=== PATIENT | male | born 1955 | race Caucasian/White ===

== ENCOUNTER 2016-09-29 11:31 | Emergency (ER) | payer OTHER ==
[~2016-09-29 11:31] MED LIST: /ACETCOD2T PO; BACT800T5 PO; MULTTAB4 PO
[2016-09-29] MEDS ORDERED: diphenhydrAMINE INJ 50MG/ML VIAL (J1200) As Ordered ONE (12:53)
[2016-09-29] MEDS ORDERED: METOCLOPRAMIDE INJ 10MG/2ML VIAL (J2765) As Ordered ONE (12:53)
[2016-09-29 13:05] LABS: BASO % 0.3 % (0.0-1.0); EOS # 0.1 K/mm3 (0.0-0.50); EOS % 0.8 % (0.0-3.0); LARGE UNSTAINED CELL # 0.1 K/mm3 (0.0-0.4); LARGE UNSTAINED CELL % 0.9 % (0.0-4.0); LYMPH # 1.1 K/mm3 (1.5-4.5); LYMPH % 10.2 % (24.0-44.0); MEAN CORPUSCULAR HEMOGLOBIN 32.1 pg (27.0-33.0); MEAN CORPUSCULAR HGB CONC 33.6 g/dl (32.0-36.5); MEAN CORPUSCULAR VOLUME 95.5 fl (80.0-96.0); MONO # 0.5 K/mm3 (0.0-0.8); MONO % 4.4 % (0.0-5.0); NEUTROPHILS # 8.5 K/mm3 (1.8-7.7); NEUTROPHILS % 83.3 % (36.0-66.0); PLATELET COUNT, AUTOMATED 258 k/mm3 (150-450); WHITE BLOOD COUNT 10.2 K/mm3 (4.0-10.0)
[2016-09-29] MEDS ORDERED: ISOVUE-370 76% 100ML VIAL (Q9967) As Ordered ONE (13:16)
[2016-09-29 13:23] LABS: ALBUMIN/GLOBULIN RATIO 1.14 (1.00-1.93); ALKALINE PHOSPHATASE 56 U/L (45-117); ALT/SGPT 26 U/L (12-78); AMYLASE 63 U/L (25-115); ANION GAP 6 MEQ/L (8-16); AST/SGOT 16 U/L (15-37); BILIRUBIN,DIRECT 0.1 MG/DL (0.0-0.2); BILIRUBIN,TOTAL 0.3 MG/DL (0.2-1.0); BLOOD UREA NITROGEN 13 MG/DL (7-18); CALCIUM LEVEL 8.9 MG/DL (8.5-10.1); CARBON DIOXIDE LEVEL 30 MEQ/L (21-32); CHLORIDE LEVEL 107 MEQ/L (98-107); CREATININE FOR GFR 1.02 MG/DL (0.70-1.30); GLOMERULAR FILTRATION RATE > 60.0 (>56); GLUCOSE, FASTING 127 MG/DL (70-105); POTASSIUM SERUM 4.1 MEQ/L (3.5-5.1); SODIUM LEVEL 143 MEQ/L (136-145); TOTAL PROTEIN 7.5 GM/DL (6.4-8.2)
--- NOTE | 2016-09-29 14:18 | REP ---
CT abdomen pelvis with IV contrast, without bowel contrast: Comparisons are 01/09/2013 and 11/19/2013. There is discoid atelectasis in the right lower lobe. The visualized lung conde are otherwise unremarkable. The hepatic parenchyma, gallbladder, pancreas and spleen are unremarkable. The adrenals are unremarkable. There is a 1 cm renal cortical cyst posteriorly in the right kidney, unchanged. There is a nonobstructive right renal calculus, unchanged. There is a nonobstructive left renal calculus, unchanged. There is no hydronephrosis. The abdominal aorta is unremarkable. There are diverticula in the ascending colon, transverse colon, descending colon, sigmoid colon as previously. There is no CT evidence of diverticulitis. There is wall thickening of the transverse colon, descending colon and sigmoid colon compatible with colitis in the appropriate clinical setting. There is wall thickening of the terminal ileum compatible with terminal ileitis in the appropriate clinical setting. The appendix has a normal appearance by CT. Pelvis: There is no ascites or adenopathy. There is wall thickening of the transverse colon, descending colon and sigmoid colon compatible with colitis in the appropriate clinical setting. There is no pericolonic inflammation or abscess. The bladder is unremarkable. There is no ascites. Impression: The appendix has a normal appearance by CT. There is diverticulosis universalis without CT evidence of diverticulitis. There is wall thickening of the transverse colon, descending colon and sigmoid colon compatible with colitis in the appropriate clinical setting. There is wall thickening of the terminal ileum compatible with terminal ileitis in the appropriate clinical setting. No adenopathy or ascites. Right renal cortical cyst. Bilateral nonobstructive renal calculi. Signed by Robbi Snyder MD 09/29/2016 02:10 P
[2016-09-29] MEDS ORDERED: KETOROLAC 30 MG/ML VIAL (J1885) As Ordered ONE (14:24)
--- NOTE | 2016-09-29 15:05 | EDDOCDS ---
Physician Documentation [facility] Name: Jensen Ndiaye Age: 60 yrs Sex: Male : 1955 Arrival Date: 09/29/2016 Time: 11:31 Bed I5 / M5 Private MD: Sixto Rice D Disposition: 09/29/16 14:49 Discharged to Home/Self Care. Impression: Infectious gastroenteritis and colitis, unspecified. - Condition is Stable. - Discharge Instructions: Viral Gastroenteritis, [id number]. - Prescriptions for Cipro 500 mg Oral Tablet - take 1 tablet by ORAL route every 12 hours; 14 tablet. Flagyl 500 mg Oral Tablet - take 1 tablet by ORAL route every 8 hours for 10 days; 30 tablet. Medrol (Thomas) 4 mg Oral Tablets, Dose Pack - take 1 Pack by ORAL route as directed - follow package instructions; 1 packet. - Medication Reconciliation, Local Pharmacy Hours form. - Follow up: Sixto Rice; When: Call to arrange an appointment; Reason: Further diagnostic work-up, Recheck today's complaints, Continuance of care. - Problem is new. - Symptoms are unchanged. Historical: - Allergies: Bees; - Home Meds: 1. 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 Patient uses alcohol but reports only rare drinking. Patient/guardian denies using street drugs, No barriers to communication noted, The patient speaks fluent Sinhala, Speaks appropriately for age. - Family history: Not pertinent. - : The pt / caregiver states he / she is not on anticoagulants. Home medication list is obtained from the patient. - Exposure Risk Screening:: None identified. Vital Signs: 09/29 11:33 BP 133 / 74; Pulse 69; Resp 17; Temp 98.9(T); Pulse Ox 99% on R/A; Weight 81.65 kg / lr2 180.01 lbs (R); Height 5 ft. 9 in. (175.26 cm) (R); 14:57 BP 136 / 74 LA Sitting (auto/reg); Pulse 78; Resp 16; Temp 97.0(O); Pulse Ox 98% ; Pain jrd 4/10; 11:33 Body Mass Index 26.58 (81.65 kg, 175.26 cm) lr2 MDM: 12:15 Financial registration complete. lg 12:16 [facility] Payment Agreement was scanned into [employer] and attached to record. lg 12:33 NS 0.9% 1000 ml IV at bolus once ordered. btw 12:33 IV Saline Lock ordered. btw 12:33 Undress patient appropriately for examination ordered. btw 12:33 Metoclopramide 20 mg IV at 80 mg/hr once over 15 mins ordered. btw 12:33 diphenhydrAMINE 50 mg IVP once ordered. btw 12:34 Amylase Ordered. EDMS 12:34 Basic Metabolic Profile Ordered. EDMS 12:34 CBC with Diff Ordered. EDMS 12:34 Lipase Ordered. EDMS 12:34 Liver Profile Ordered. EDMS 12:34 Urinalysis Ordered. EDMS 12:34 Urine Culture Ordered. EDMS 12:34 CT ABD & PELVIS: IV Contrast Only Ordered. EDMS 12:34 NOTHING BY MOUTH+DIET ordered. EDMS 13:35 Basic Metabolic Profile Reviewed. btw 13:35 CBC with Diff Reviewed. btw 13:35 Amylase Reviewed. btw 13:35 Lipase Reviewed. btw 13:35 Liver Profile Reviewed. btw 14:36 ketorolac 30 mg IVP once ordered. jo3 Administered Medications: 13:04 Drug: NS 0.9% 1000 ml Route: IV; Rate: bolus; Site: left antecubital; jmk 13:04 Drug: Metoclopramide 20 mg [metoclopramide 5 mg/mL injection solution] Route: IV; Rate: jmk 80 mg/hr; Infused Over: 15 mins; Site: left antecubital; 13:04 Not Given (pt reports that he is driving): diphenhydrAMINE 50 mg IVP once jmk 14:28 Drug: ketorolac 30 mg [ketorolac 30 mg/mL (1 mL) injection solution (1 mL)] Route: IVP; jo3 Site: left antecubital; 15:03 Follow up: Response: Pain is decreased jm Signatures: Dispatcher [employer] EDMS Eldon Wynn RN RN jmMicah Goncalves, Harlan Reg lg Yessy SimonRN RN jo3 Cassius Dumas PA PA btw Nayeli Durbin, RN RN ttb The chart was reviewed and I authenticate all verbal orders and agree with the evaluation and treatment provided.Attachments: 12:16 [facility] Payment Agreement lg MTDD
--- NOTE | 2016-09-29 15:05 | EDDOCDS ---
Nurse's Notes [facility] Name: Jensen Ndiaye Age: 60 yrs Sex: Male : 1955 Arrival Date: 09/29/2016 Time: 11:31 Bed I5 / M5 Private MD: Sixto Rice D Diagnosis: Infectious gastroenteritis and colitis, unspecified Presentation: 09/29 11:37 Presenting complaint: Patient states: "nausea, shakey, lower right quadrant abd pain". ttb Since this morning. Denies /GI changes. Adult Sepsis Screening: The patient does not have new or worsening altered mentation. Patient's respiratory rate is less than 22. Systolic blood pressure is greater than 100. Patient has a qSOFA score of 0- Negative Sepsis Screen. Suicide/Homicide risk assessment- the patient denies having any suicidal and/or homicidal ideations and does not present with any other emotional, behavioral or mental health complaints. Status: Patient is not a general service technician or dependent. Transition of care: patient was not received from another setting of care. 11:37 Acuity: MACY Level 3 ttb 11:37 Method Of Arrival: Walkin/Carried/Asstd ttb Triage Assessment: 11:39 General: Appears in no apparent distress, uncomfortable, well nourished, well groomed, ttb Behavior is appropriate for age. Pain: Location: RLQ. HIV screening NA for this visit Offered previously. Neurological: Level of Consciousness is awake, alert. Cardiovascular: Chest pain is denied. Respiratory: No deficits noted. Airway is patent. GI: Reports lower abdominal pain, nausea, vomiting. : Denies burning with urination, urinary frequency, urgency. Derm: Skin is normal. Injury Description: No known injury. Historical: - Allergies: Bees; - Home Meds: 1. 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 Patient uses alcohol but reports only rare drinking. Patient/guardian denies using street drugs, No barriers to communication noted, The patient speaks fluent Wolof, Speaks appropriately for age. - Family history: Not pertinent. - : The pt / caregiver states he / she is not on anticoagulants. Home medication list is obtained from the patient. - Exposure Risk Screening:: None identified. Screenin:02 Screening information is obtained from the patient. Fall risk: No risks identified. jo3 Assistance ADL's: requires no assistance with activities of daily living. Abuse/DV Screen: The patient / caregiver reports he/she is: not in a situation that causes fear, pain or injury. Nutritional screening: No deficits noted. Advance Directives: There is no active DNR order. home support is adequate. Assessment: 11:42 General: assess pt during triage- c/o RLQ pain that radiates to groin. vomited x3 srm today. . 13:02 Neurological: Level of Consciousness is awake, alert, Oriented to person, place, time. jo3 Cardiovascular: Rhythm is regular. Respiratory: Airway is patent Respiratory effort is even, unlabored. GI: No deficits noted. Abdomen is obese, Bowel sounds present X 4 quads. Abd is soft X 4 quads Abd is tender to palpation in right upper quadrant and right lower quadrant. Derm: Skin is pink, warm & dry. 13:44 General: Appears reports no change in nausea or pain. reinforced NPO.. jmk 14:37 Reassessment: Patient appears in no apparent distress at this time. Pt reports little jo3 change in pain and nausea. Toradol administered and this sign writer hand to monitor for effectiveness . 15:02 General: Appears without nausea and reports pain has lessened. IV bolus completed and jmk tolerated well. encouraged clear liquids x 24 hours. Vital Signs: 11:33 BP 133 / 74; Pulse 69; Resp 17; Temp 98.9(T); Pulse Ox 99% on R/A; Weight 81.65 kg (R); lr2 Height 5 ft. 9 in. (175.26 cm) (R); 14:57 BP 136 / 74 LA Sitting (auto/reg); Pulse 78; Resp 16; Temp 97.0(O); Pulse Ox 98% ; Pain jrd 11/27; 11:33 Body Mass Index 26.58 (81.65 kg, 175.26 cm) lr2 Vitals: 11:33 Log In Time: September 29, 2016 at 11:31. lr2 ED Course: 11:32 Patient visited by Whit Magana. lr2 11:32 Sixto Rice is Private Physician. lr2 11:32 Patient moved to Waiting lr2 11:33 Patient moved to Pre RCE lr2 11:38 Triage Initiated ttb 11:40 Patient visited by Nayeli Durbin RN. ttb 11:40 Patient moved to 6 ttb 11:41 Patient moved to Pre RCE ttb 12:02 Patient moved to Triage 1 js13 12:15 Cassius Dumas PA is PHCP. btw 12:15 Mirian Murillo MD is Attending Physician. btw 12:15 Patient visited by Cassius Dumas PA. btw 12:16 [facility] Payment Agreement was scanned into [employer] and attached to record. lg 12:33 Patient moved to I5 / M5 js13 13:02 The patient / caregiver is instructed regarding the plan of care and ED course. jo3 13:02 Inserted saline lock: 18 gauge in left antecubital area. Labs drawn. (by ED staff). jo3 Sent per order to lab. 13:06 Patient visited by Yessy Simon RN. jo3 14:38 Patient visited by Yessy Simon RN. jo3 14:49 Sixto Rice is Referral Physician. btw 14:57 Patient visited by Vinh Daniel PCA. jrd 15:01 CT ABD & PELVIS: IV Contrast Only Returned. EDMS 15:04 Discontinued lock intact, bleeding controlled, pressure dressing applied, No jmk redness/swelling at site. No procedures done that require assistance. Administered Medications: 13:04 Drug: NS 0.9% 1000 ml Route: IV; Rate: bolus; Site: left antecubital; jmk 13:04 Drug: Metoclopramide 20 mg [metoclopramide 5 mg/mL injection solution] Route: IV; Rate: jmk 80 mg/hr; Infused Over: 15 mins; Site: left antecubital; 13:04 Not Given (pt reports that he is driving): diphenhydrAMINE 50 mg IVP once jmk 14:28 Drug: ketorolac 30 mg [ketorolac 30 mg/mL (1 mL) injection solution (1 mL)] Route: IVP; jo3 Site: left antecubital; 15:03 Follow up: Response: Pain is decreased jmk Order Results: Lab Order: Amylase; SPEC'M 09/29/16 12:54 Test: AMYLASE; Value: 63; Range: 25-115; Units: U/L; Status: F Lab Order: Basic Metabolic Profile; SPEC'09/29/16 12:54 Test: GLUCOSE, FASTING; Value: 127; Range: 70-105; Abnormal: Above high normal; Units: MG/DL; Status: F Test: BLOOD UREA NITROGEN; Value: 13; Range: 7-18; Units: MG/DL; Status: F Test: CREATININE FOR GFR; Value: 1.02; Range: 0.70-1.30; Units: MG/DL; Status: F Test: GLOMERULAR FILTRATION RATE; Value: > 60.0; Range: >56; Status: F Test: SODIUM LEVEL; Value: 143; Range: 136-145; Units: MEQ/L; Status: F Test: POTASSIUM SERUM; Value: 4.1; Range: 3.5-5.1; Units: MEQ/L; Status: F Test: CHLORIDE LEVEL; Value: 107; Range: 98-107; Units: MEQ/L; Status: F Test: CARBON DIOXIDE LEVEL; Value: 30; Range: 21-32; Units: MEQ/L; Status: F Test: ANION GAP; Value: 6; Range: 8-16; Abnormal: Below low normal; Units: MEQ/L; Status: F Test: CALCIUM LEVEL; Value: 8.9; Range: 8.5-10.1; Units: MG/DL; Status: F Test Note: ; Units are mL/min/1.73 m2 Chronic Kidney Disease Staging per NKF: Stage I & II GFR >=60 Normal to Mildly Decreased Stage III GFR 30-59 Moderately Decreased Stage IV GFR 15-29 Severely Decreased Stage V GFR <15 Very Little GFR Left ESRD GFR <15 on SHEET TAILER Lab Order: CBC with Diff; SPEC'09/29/16 12:54 Test: WHITE BLOOD COUNT; Value: 10.2; Range: 4.0-10.0; Abnormal: Above high normal; Units: K/mm3; Status: F Test: RED BLOOD COUNT; Value: 4.78; Range: 4.30-6.10; Units: M/mm3; Status: F Test: HEMOGLOBIN; Value: 15.4; Range: 14.0-18.0; Units: g/dl; Status: F Test: HEMATOCRIT; Value: 45.7; Range: 42.0-52.0; Units: %; Status: F Test: MEAN CORPUSCULAR VOLUME; Value: 95.5; Range: 80.0-96.0; Units: fl; Status: F Test: MEAN CORPUSCULAR HEMOGLOBIN; Value: 32.1; Range: 27.0-33.0; Units: pg; Status: F Test: MEAN CORPUSCULAR HGB CONC; Value: 33.6; Range: 32.0-36.5; Units: g/dl; Status: F Test: RED CELL DISTRIBUTION WIDTH; Value: 12.0; Range: 11.5-14.5; Units: %; Status: F Test: PLATELET COUNT, AUTOMATED; Value: 258; Range: 150-450; Units: k/mm3; Status: F Test: NEUTROPHILS %; Value: 83.3; Range: 36.0-66.0; Abnormal: Above high normal; Units: %; Status: F Test: LYMPH %; Value: 10.2; Range: 24.0-44.0; Abnormal: Below low normal; Units: %; Status: F Test: MONO %; Value: 4.4; Range: 0.0-5.0; Units: %; Status: F Test: EOS %; Value: 0.8; Range: 0.0-3.0; Units: %; Status: F Test: BASO %; Value: 0.3; Range: 0.0-1.0; Units: %; Status: F Test: LARGE UNSTAINED CELL %; Value: 0.9; Range: 0.0-4.0; Units: %; Status: F Test: NEUTROPHILS #; Value: 8.5; Range: 1.8-7.7; Abnormal: Above high normal; Units: K/mm3; Status: F Test: LYMPH #; Value: 1.1; Range: 1.5-4.5; Abnormal: Below low normal; Units: K/mm3; Status: F Test: MONO #; Value: 0.5; Range: 0.0-0.8; Units: K/mm3; Status: F Test: EOS #; Value: 0.1; Range: 0.0-0.50; Units: K/mm3; Status: F Test: BASO #; Value: 0.0; Range: 0.0-0.2; Units: K/mm3; Status: F Test: LARGE UNSTAINED CELL #; Value: 0.1; Range: 0.0-0.4; Units: K/mm3; Status: F Lab Order: Lipase; SPEC'M 09/29/16 12:54 Test: LIPASE; Value: 125; Range: 73-393; Units: U/L; Status: F Lab Order: Liver Profile; SPEC'M 09/29/16 12:54 Test: AST/SGOT; Value: 16; Range: 15-37; Units: U/L; Status: F Test: ALT/SGPT; Value: 26; Range: 12-78; Units: U/L; Status: F Test: ALKALINE PHOSPHATASE; Value: 56; Range: 45-117; Units: U/L; Status: F Test: BILIRUBIN,TOTAL; Value: 0.3; Range: 0.2-1.0; Units: MG/DL; Status: F Test: BILIRUBIN,DIRECT; Value: 0.1; Range: 0.0-0.2; Units: MG/DL; Status: F Test: TOTAL PROTEIN; Value: 7.5; Range: 6.4-8.2; Units: GM/DL; Status: F Test: ALBUMIN; Value: 4.0; Range: 3.2-5.2; Units: GM/DL; Status: F Test: ALBUMIN/GLOBULIN RATIO; Value: 1.14; Range: 1.00-1.93; Status: F Radiology Order: CT ABD & PELVIS: IV Contrast Only Test: CT ABD & PELVIS: IV Contrast Only REASON FOR EXAMINATION: Appendicitis; CT abdomen pelvis with IV contrast, without bowel contrast:; ; Comparisons are 01/09/2013 and 11/19/2013.; ; There is discoid atelectasis in the right lower lobe. The visualized lung conde; are otherwise unremarkable.; ; The hepatic parenchyma, gallbladder, pancreas and spleen are unremarkable. The; adrenals are unremarkable.; ; There is a 1 cm renal cortical cyst posteriorly in the right kidney, unchanged.; There is a nonobstructive right renal calculus, unchanged. There is a; nonobstructive left renal calculus, unchanged. There is no hydronephrosis.; ; The abdominal aorta is unremarkable.; ; There are diverticula in the ascending colon, transverse colon, descending colon,; sigmoid colon as previously. There is no CT evidence of diverticulitis.; ; There is wall thickening of the transverse colon, descending colon and sigmoid; colon compatible with colitis in the appropriate clinical setting. There is wall; thickening of the terminal ileum compatible with terminal ileitis in the; appropriate clinical setting.; ; The appendix has a normal appearance by CT.; ; Pelvis:; ; There is no ascites or adenopathy.; ; There is wall thickening of the transverse colon, descending colon and sigmoid; colon compatible with colitis in the appropriate clinical setting. There is no; pericolonic inflammation or abscess.; ; The bladder is unremarkable. There is no ascites.; ; Impression:; ; The appendix has a normal appearance by CT.; ; There is diverticulosis universalis without CT evidence of diverticulitis.; ; There is wall thickening of the transverse colon, descending colon and sigmoid; colon compatible with colitis in the appropriate clinical setting. There is wall; thickening of the terminal ileum compatible with terminal ileitis in the; appropriate clinical setting.; ; No adenopathy or ascites.; ; Right renal cortical cyst. Bilateral nonobstructive renal calculi.; ; ; Signed by; Robbi Snyder MD 09/29/2016 02:10 P; Outcome: 14:49 Discharge ordered by Provider. btw 15:04 Discharge Assessment: Patient awake, alert and oriented x 3. No cognitive and/or jmk functional deficits noted. Patient verbalized understanding of disposition instructions. patient administered narcotics - no. The following High Risk Discharge criteria are identified: None. Discharged to home ambulatory. Condition: good. Discharge instructions given to patient, Instructed on discharge instructions, follow up and referral plans. medication usage, Demonstrated understanding of instructions, medications, Patient was not receptive of discharge instructions. Prescriptions given X 3. CT Study completed. Property :Personal belongings accompany Pt. 15:05 Patient left the ED. alex Signatures: Dispatcher [employer] EDMS Eldon Wynn RN RN jmk Michelson, Staci RN Micah Mcnair, Harlan Reg lg Yessy Simon RN RN [email or web address] Cassius Dumas, VANESSA PA btw Yessy Parks,CATRACHITO WINSTON js13 Nayeli Durbin RN RN ttb Donoghue, Joseph, SPRAY II PAINTER SPRAY II PAINTER jrd Whit Magana lr2 MTDD
[2016-09-29] MEDS ORDERED: METAL LOCK LOOP XX ONE (16:52)
--- NOTE | 2016-10-01 16:06 | EDDOCDS ---
Physician Documentation [facility] Name: Jensen Ndiaye Age: 60 yrs Sex: Male : 1955 Arrival Date: 09/29/2016 Time: 11:31 Bed I5 / M5 Private MD: Sixto Rice D Disposition: 09/29/16 14:49 Discharged to Home/Self Care. Impression: Infectious gastroenteritis and colitis, unspecified. - Condition is Stable. - Discharge Instructions: Viral Gastroenteritis, [id number]. - Prescriptions for Cipro 500 mg Oral Tablet - take 1 tablet by ORAL route every 12 hours; 14 tablet. Flagyl 500 mg Oral Tablet - take 1 tablet by ORAL route every 8 hours for 10 days; 30 tablet. Medrol (Thomas) 4 mg Oral Tablets, Dose Pack - take 1 Pack by ORAL route as directed - follow package instructions; 1 packet. - Medication Reconciliation, Local Pharmacy Hours form. - Follow up: Sixto Rice; When: Call to arrange an appointment; Reason: Further diagnostic work-up, Recheck today's complaints, Continuance of care. - Problem is new. - Symptoms are unchanged. Historical: - Allergies: Bees; - Home Meds: 1. 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 Patient uses alcohol but reports only rare drinking. Patient/guardian denies using street drugs, No barriers to communication noted, The patient speaks fluent Welsh, Speaks appropriately for age. - Family history: Not pertinent. - : The pt / caregiver states he / she is not on anticoagulants. Home medication list is obtained from the patient. - Exposure Risk Screening:: None identified. Vital Signs: 09/29 11:33 BP 133 / 74; Pulse 69; Resp 17; Temp 98.9(T); Pulse Ox 99% on R/A; Weight 81.65 kg / lr2 180.01 lbs (R); Height 5 ft. 9 in. (175.26 cm) (R); 14:57 BP 136 / 74 LA Sitting (auto/reg); Pulse 78; Resp 16; Temp 97.0(O); Pulse Ox 98% ; Pain jrd 4/10; 11:33 Body Mass Index 26.58 (81.65 kg, 175.26 cm) lr2 MDM: 12:15 Financial registration complete. lg 12:16 [facility] Payment Agreement was scanned into [employer] and attached to record. lg 12:33 NS 0.9% 1000 ml IV at bolus once ordered. btw 12:33 IV Saline Lock ordered. btw 12:33 Undress patient appropriately for examination ordered. btw 12:33 Metoclopramide 20 mg IV at 80 mg/hr once over 15 mins ordered. btw 12:33 diphenhydrAMINE 50 mg IVP once ordered. btw 12:34 Amylase Ordered. EDMS 12:34 Basic Metabolic Profile Ordered. EDMS 12:34 CBC with Diff Ordered. EDMS 12:34 Lipase Ordered. EDMS 12:34 Liver Profile Ordered. EDMS 12:34 Urinalysis Ordered. EDMS 12:34 Urine Culture Ordered. EDMS 12:34 CT ABD & PELVIS: IV Contrast Only Ordered. EDMS 12:34 NOTHING BY MOUTH+DIET ordered. EDMS 13:35 Basic Metabolic Profile Reviewed. btw 13:35 CBC with Diff Reviewed. btw 13:35 Amylase Reviewed. btw 13:35 Lipase Reviewed. btw 13:35 Liver Profile Reviewed. btw 14:36 ketorolac 30 mg IVP once ordered. jo3 09/30 11:50 T-Sheet-- Draft Copy was scanned into [employer] and attached to record. gb Administered Medications: 09/29 13:04 Drug: NS 0.9% 1000 ml Route: IV; Rate: bolus; Site: left antecubital; jmk 13:04 Drug: Metoclopramide 20 mg [metoclopramide 5 mg/mL injection solution] Route: IV; Rate: jmk 80 mg/hr; Infused Over: 15 mins; Site: left antecubital; 13:04 Not Given (pt reports that he is driving): diphenhydrAMINE 50 mg IVP once cresencio 14:28 Drug: ketorolac 30 mg [ketorolac 30 mg/mL (1 mL) injection solution (1 mL)] Route: IVP; jo3 Site: left antecubital; 15:03 Follow up: Response: Pain is decreased alex Signatures: Dispatcher [employer] EDMS Eldon Wynn RN RN Beckie Russo, Reg Reg gb Micah Gregorio, Reg Reg lg Yessy Simon RN RN jo3 Casisus Dumas PA PA btw Nayeli Durbin RN RN ttb The chart was reviewed and I authenticate all verbal orders and agree with the evaluation and treatment provided.Attachments: 12:16 [facility] Payment Agreement lg 09/30 11:50 T-Sheet-- Draft Copy gb Chart Complete MTDD
--- NOTE | 2016-10-01 16:06 | EDDOCDS ---
Nurse's Notes [facility] Name: Jensen Ndiaye Age: 60 yrs Sex: Male : 1955 Arrival Date: 09/29/2016 Time: 11:31 Bed I5 / M5 Private MD: Sixto Rice D Diagnosis: Infectious gastroenteritis and colitis, unspecified Presentation: 09/29 11:37 Presenting complaint: Patient states: "nausea, shakey, lower right quadrant abd pain". ttb Since this morning. Denies /GI changes. Adult Sepsis Screening: The patient does not have new or worsening altered mentation. Patient's respiratory rate is less than 22. Systolic blood pressure is greater than 100. Patient has a qSOFA score of 0- Negative Sepsis Screen. Suicide/Homicide risk assessment- the patient denies having any suicidal and/or homicidal ideations and does not present with any other emotional, behavioral or mental health complaints. Status: Patient is not a direct customer service representative or dependent. Transition of care: patient was not received from another setting of care. 11:37 Acuity: MACY Level 3 ttb 11:37 Method Of Arrival: Walkin/Carried/Asstd ttb Triage Assessment: 11:39 General: Appears in no apparent distress, uncomfortable, well nourished, well groomed, ttb Behavior is appropriate for age. Pain: Location: RLQ. HIV screening NA for this visit Offered previously. Neurological: Level of Consciousness is awake, alert. Cardiovascular: Chest pain is denied. Respiratory: No deficits noted. Airway is patent. GI: Reports lower abdominal pain, nausea, vomiting. : Denies burning with urination, urinary frequency, urgency. Derm: Skin is normal. Injury Description: No known injury. Historical: - Allergies: Bees; - Home Meds: 1. 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 Patient uses alcohol but reports only rare drinking. Patient/guardian denies using street drugs, No barriers to communication noted, The patient speaks fluent Mongolian, Speaks appropriately for age. - Family history: Not pertinent. - : The pt / caregiver states he / she is not on anticoagulants. Home medication list is obtained from the patient. - Exposure Risk Screening:: None identified. Screenin:02 Screening information is obtained from the patient. Fall risk: No risks identified. jo3 Assistance ADL's: requires no assistance with activities of daily living. Abuse/DV Screen: The patient / caregiver reports he/she is: not in a situation that causes fear, pain or injury. Nutritional screening: No deficits noted. Advance Directives: There is no active DNR order. home support is adequate. Assessment: 11:42 General: assess pt during triage- c/o RLQ pain that radiates to groin. vomited x3 srm today. . 13:02 Neurological: Level of Consciousness is awake, alert, Oriented to person, place, time. jo3 Cardiovascular: Rhythm is regular. Respiratory: Airway is patent Respiratory effort is even, unlabored. GI: No deficits noted. Abdomen is obese, Bowel sounds present X 4 quads. Abd is soft X 4 quads Abd is tender to palpation in right upper quadrant and right lower quadrant. Derm: Skin is pink, warm & dry. 13:44 General: Appears reports no change in nausea or pain. reinforced NPO.. jmk 14:37 Reassessment: Patient appears in no apparent distress at this time. Pt reports little jo3 change in pain and nausea. Toradol administered and this short story writer to monitor for effectiveness . 15:02 General: Appears without nausea and reports pain has lessened. IV bolus completed and jmk tolerated well. encouraged clear liquids x 24 hours. Vital Signs: 11:33 BP 133 / 74; Pulse 69; Resp 17; Temp 98.9(T); Pulse Ox 99% on R/A; Weight 81.65 kg (R); lr2 Height 5 ft. 9 in. (175.26 cm) (R); 14:57 BP 136 / 74 LA Sitting (auto/reg); Pulse 78; Resp 16; Temp 97.0(O); Pulse Ox 98% ; Pain jrd 11/27; 11:33 Body Mass Index 26.58 (81.65 kg, 175.26 cm) lr2 Vitals: 11:33 Log In Time: September 29, 2016 at 11:31. lr2 ED Course: 11:32 Patient visited by Whit Magana. lr2 11:32 Sixto Rice is Private Physician. lr2 11:32 Patient moved to Waiting lr2 11:33 Patient moved to Pre RCE lr2 11:38 Triage Initiated ttb 11:40 Patient visited by Nayeli Durbin RN. ttb 11:40 Patient moved to 6 ttb 11:41 Patient moved to Pre RCE ttb 12:02 Patient moved to Triage 1 js13 12:15 Cassius Dumas PA is PHCP. btw 12:15 Mirian Murillo MD is Attending Physician. btw 12:15 Patient visited by Cassius Dumas PA. btw 12:16 [facility] Payment Agreement was scanned into TagArray and attached to record. lg 12:33 Patient moved to I5 / M5 js13 13:02 The patient / caregiver is instructed regarding the plan of care and ED course. jo3 13:02 Inserted saline lock: 18 gauge in left antecubital area. Labs drawn. (by ED staff). jo3 Sent per order to lab. 13:06 Patient visited by Yessy Simon RN. jo3 14:38 Patient visited by Yessy Simon RN. jo3 14:49 Sixto Rice is Referral Physician. btw 14:57 Patient visited by Vinh Daniel PCA. jrd 15:01 CT ABD & PELVIS: IV Contrast Only Returned. EDMS 15:04 Discontinued lock intact, bleeding controlled, pressure dressing applied, No jmk redness/swelling at site. No procedures done that require assistance. 09/30 11:50 T-Sheet-- Draft Copy was scanned into TagArray and attached to record. gb Administered Medications: 09/29 13:04 Drug: NS 0.9% 1000 ml Route: IV; Rate: bolus; Site: left antecubital; jmk 13:04 Drug: Metoclopramide 20 mg [metoclopramide 5 mg/mL injection solution] Route: IV; Rate: jmk 80 mg/hr; Infused Over: 15 mins; Site: left antecubital; 13:04 Not Given (pt reports that he is driving): diphenhydrAMINE 50 mg IVP once jmk 14:28 Drug: ketorolac 30 mg [ketorolac 30 mg/mL (1 mL) injection solution (1 mL)] Route: IVP; jo3 Site: left antecubital; 15:03 Follow up: Response: Pain is decreased jmk Order Results: Lab Order: Amylase; SPEC09/29/16 12:54 Test: AMYLASE; Value: 63; Range: 25-115; Units: U/L; Status: F Lab Order: Basic Metabolic Profile; 09/29/16 12:54 Test: GLUCOSE, FASTING; Value: 127; Range: 70-105; Abnormal: Above high normal; Units: MG/DL; Status: F Test: BLOOD UREA NITROGEN; Value: 13; Range: 7-18; Units: MG/DL; Status: F Test: CREATININE FOR GFR; Value: 1.02; Range: 0.70-1.30; Units: MG/DL; Status: F Test: GLOMERULAR FILTRATION RATE; Value: > 60.0; Range: >56; Status: F Test: SODIUM LEVEL; Value: 143; Range: 136-145; Units: MEQ/L; Status: F Test: POTASSIUM SERUM; Value: 4.1; Range: 3.5-5.1; Units: MEQ/L; Status: F Test: CHLORIDE LEVEL; Value: 107; Range: 98-107; Units: MEQ/L; Status: F Test: CARBON DIOXIDE LEVEL; Value: 30; Range: 21-32; Units: MEQ/L; Status: F Test: ANION GAP; Value: 6; Range: 8-16; Abnormal: Below low normal; Units: MEQ/L; Status: F Test: CALCIUM LEVEL; Value: 8.9; Range: 8.5-10.1; Units: MG/DL; Status: F Test Note: ; Units are mL/min/1.73 m2 Chronic Kidney Disease Staging per NKF: Stage I & II GFR >=60 Normal to Mildly Decreased Stage III GFR 30-59 Moderately Decreased Stage IV GFR 15-29 Severely Decreased Stage V GFR <15 Very Little GFR Left ESRD GFR <15 on LOCK SETTER Lab Order: CBC with Diff; 09/29/16 12:54 Test: WHITE BLOOD COUNT; Value: 10.2; Range: 4.0-10.0; Abnormal: Above high normal; Units: K/mm3; Status: F Test: RED BLOOD COUNT; Value: 4.78; Range: 4.30-6.10; Units: M/mm3; Status: F Test: HEMOGLOBIN; Value: 15.4; Range: 14.0-18.0; Units: g/dl; Status: F Test: HEMATOCRIT; Value: 45.7; Range: 42.0-52.0; Units: %; Status: F Test: MEAN CORPUSCULAR VOLUME; Value: 95.5; Range: 80.0-96.0; Units: fl; Status: F Test: MEAN CORPUSCULAR HEMOGLOBIN; Value: 32.1; Range: 27.0-33.0; Units: pg; Status: F Test: MEAN CORPUSCULAR HGB CONC; Value: 33.6; Range: 32.0-36.5; Units: g/dl; Status: F Test: RED CELL DISTRIBUTION WIDTH; Value: 12.0; Range: 11.5-14.5; Units: %; Status: F Test: PLATELET COUNT, AUTOMATED; Value: 258; Range: 150-450; Units: k/mm3; Status: F Test: NEUTROPHILS %; Value: 83.3; Range: 36.0-66.0; Abnormal: Above high normal; Units: %; Status: F Test: LYMPH %; Value: 10.2; Range: 24.0-44.0; Abnormal: Below low normal; Units: %; Status: F Test: MONO %; Value: 4.4; Range: 0.0-5.0; Units: %; Status: F Test: EOS %; Value: 0.8; Range: 0.0-3.0; Units: %; Status: F Test: BASO %; Value: 0.3; Range: 0.0-1.0; Units: %; Status: F Test: LARGE UNSTAINED CELL %; Value: 0.9; Range: 0.0-4.0; Units: %; Status: F Test: NEUTROPHILS #; Value: 8.5; Range: 1.8-7.7; Abnormal: Above high normal; Units: K/mm3; Status: F Test: LYMPH #; Value: 1.1; Range: 1.5-4.5; Abnormal: Below low normal; Units: K/mm3; Status: F Test: MONO #; Value: 0.5; Range: 0.0-0.8; Units: K/mm3; Status: F Test: EOS #; Value: 0.1; Range: 0.0-0.50; Units: K/mm3; Status: F Test: BASO #; Value: 0.0; Range: 0.0-0.2; Units: K/mm3; Status: F Test: LARGE UNSTAINED CELL #; Value: 0.1; Range: 0.0-0.4; Units: K/mm3; Status: F Lab Order: Lipase; SPEC'M 09/29/16 12:54 Test: LIPASE; Value: 125; Range: 73-393; Units: U/L; Status: F Lab Order: Liver Profile; SPEC'M 09/29/16 12:54 Test: AST/SGOT; Value: 16; Range: 15-37; Units: U/L; Status: F Test: ALT/SGPT; Value: 26; Range: 12-78; Units: U/L; Status: F Test: ALKALINE PHOSPHATASE; Value: 56; Range: 45-117; Units: U/L; Status: F Test: BILIRUBIN,TOTAL; Value: 0.3; Range: 0.2-1.0; Units: MG/DL; Status: F Test: BILIRUBIN,DIRECT; Value: 0.1; Range: 0.0-0.2; Units: MG/DL; Status: F Test: TOTAL PROTEIN; Value: 7.5; Range: 6.4-8.2; Units: GM/DL; Status: F Test: ALBUMIN; Value: 4.0; Range: 3.2-5.2; Units: GM/DL; Status: F Test: ALBUMIN/GLOBULIN RATIO; Value: 1.14; Range: 1.00-1.93; Status: F Radiology Order: CT ABD & PELVIS: IV Contrast Only Test: CT ABD & PELVIS: IV Contrast Only REASON FOR EXAMINATION: Appendicitis; CT abdomen pelvis with IV contrast, without bowel contrast:; ; Comparisons are 01/09/2013 and 11/19/2013.; ; There is discoid atelectasis in the right lower lobe. The visualized lung conde; are otherwise unremarkable.; ; The hepatic parenchyma, gallbladder, pancreas and spleen are unremarkable. The; adrenals are unremarkable.; ; There is a 1 cm renal cortical cyst posteriorly in the right kidney, unchanged.; There is a nonobstructive right renal calculus, unchanged. There is a; nonobstructive left renal calculus, unchanged. There is no hydronephrosis.; ; The abdominal aorta is unremarkable.; ; There are diverticula in the ascending colon, transverse colon, descending colon,; sigmoid colon as previously. There is no CT evidence of diverticulitis.; ; There is wall thickening of the transverse colon, descending colon and sigmoid; colon compatible with colitis in the appropriate clinical setting. There is wall; thickening of the terminal ileum compatible with terminal ileitis in the; appropriate clinical setting.; ; The appendix has a normal appearance by CT.; ; Pelvis:; ; There is no ascites or adenopathy.; ; There is wall thickening of the transverse colon, descending colon and sigmoid; colon compatible with colitis in the appropriate clinical setting. There is no; pericolonic inflammation or abscess.; ; The bladder is unremarkable. There is no ascites.; ; Impression:; ; The appendix has a normal appearance by CT.; ; There is diverticulosis universalis without CT evidence of diverticulitis.; ; There is wall thickening of the transverse colon, descending colon and sigmoid; colon compatible with colitis in the appropriate clinical setting. There is wall; thickening of the terminal ileum compatible with terminal ileitis in the; appropriate clinical setting.; ; No adenopathy or ascites.; ; Right renal cortical cyst. Bilateral nonobstructive renal calculi.; ; ; Signed by; Robbi Snyder MD 09/29/2016 02:10 P; Outcome: 14:49 Discharge ordered by Provider. btw 15:04 Discharge Assessment: Patient awake, alert and oriented x 3. No cognitive and/or jmk functional deficits noted. Patient verbalized understanding of disposition instructions. patient administered narcotics - no. The following High Risk Discharge criteria are identified: None. Discharged to home ambulatory. Condition: good. Discharge instructions given to patient, Instructed on discharge instructions, follow up and referral plans. medication usage, Demonstrated understanding of instructions, medications, Patient was not receptive of discharge instructions. Prescriptions given X 3. CT Study completed. Property :Personal belongings accompany Pt. 15:05 Patient left the ED. alex Signatures: Dispatcher [employer] EDMS Eldon Wynn RN RN jmk Michelson, Staci, RN RN [facility] Beckie Lanier, Reg Reg gb Micah Gregorio, Reg Reg lg Yessy Simon RN RN jo3 Wolfenden, Cassius, PA PA btw Yessy Parks,RN RN js13 Nayeli Durbin, RN RN griffinb Vinh Daniel, SILVIA TIPPLE SUPERVISOR jrd Whit Magana2 Chart Complete MTDD
--- NOTE | 2016-10-01 16:06 | EDDOCDS ---
Physician Documentation [facility] Name: Jensen Ndiaye Age: 60 yrs Sex: Male : 1955 Arrival Date: 09/29/2016 Time: 11:31 Bed I5 / M5 Private MD: Sixto Rice D Disposition: 09/29/16 14:49 Discharged to Home/Self Care. Impression: Infectious gastroenteritis and colitis, unspecified. - Condition is Stable. - Discharge Instructions: Viral Gastroenteritis, [id number]. - Prescriptions for Cipro 500 mg Oral Tablet - take 1 tablet by ORAL route every 12 hours; 14 tablet. Flagyl 500 mg Oral Tablet - take 1 tablet by ORAL route every 8 hours for 10 days; 30 tablet. Medrol (Thomas) 4 mg Oral Tablets, Dose Pack - take 1 Pack by ORAL route as directed - follow package instructions; 1 packet. - Medication Reconciliation, Local Pharmacy Hours form. - Follow up: Sixto Rice; When: Call to arrange an appointment; Reason: Further diagnostic work-up, Recheck today's complaints, Continuance of care. - Problem is new. - Symptoms are unchanged. Historical: - Allergies: Bees; - Home Meds: 1. 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 Patient uses alcohol but reports only rare drinking. Patient/guardian denies using street drugs, No barriers to communication noted, The patient speaks fluent Georgian, Speaks appropriately for age. - Family history: Not pertinent. - : The pt / caregiver states he / she is not on anticoagulants. Home medication list is obtained from the patient. - Exposure Risk Screening:: None identified. Vital Signs: 09/29 11:33 BP 133 / 74; Pulse 69; Resp 17; Temp 98.9(T); Pulse Ox 99% on R/A; Weight 81.65 kg / lr2 180.01 lbs (R); Height 5 ft. 9 in. (175.26 cm) (R); 14:57 BP 136 / 74 LA Sitting (auto/reg); Pulse 78; Resp 16; Temp 97.0(O); Pulse Ox 98% ; Pain jrd 4/10; 11:33 Body Mass Index 26.58 (81.65 kg, 175.26 cm) lr2 MDM: 12:15 Financial registration complete. lg 12:16 [place] [place] was scanned into Styl[employer] and attached to record. lg 12:33 NS 0.9% 1000 ml IV at bolus once ordered. btw 12:33 IV Saline Lock ordered. btw 12:33 Undress patient appropriately for examination ordered. btw 12:33 Metoclopramide 20 mg IV at 80 mg/hr once over 15 mins ordered. btw 12:33 diphenhydrAMINE 50 mg IVP once ordered. btw 12:34 Amylase Ordered. EDMS 12:34 Basic Metabolic Profile Ordered. EDMS 12:34 CBC with Diff Ordered. EDMS 12:34 Lipase Ordered. EDMS 12:34 Liver Profile Ordered. EDMS 12:34 Urinalysis Ordered. EDMS 12:34 Urine Culture Ordered. EDMS 12:34 CT ABD & PELVIS: IV Contrast Only Ordered. EDMS 12:34 NOTHING BY MOUTH+DIET ordered. EDMS 13:35 Basic Metabolic Profile Reviewed. btw 13:35 CBC with Diff Reviewed. btw 13:35 Amylase Reviewed. btw 13:35 Lipase Reviewed. btw 13:35 Liver Profile Reviewed. btw 14:36 ketorolac 30 mg IVP once ordered. jo3 09/30 11:50 T-Sheet-- Draft Copy was scanned into [employer] and attached to record. gb Administered Medications: 09/29 13:04 Drug: NS 0.9% 1000 ml Route: IV; Rate: bolus; Site: left antecubital; jmk 13:04 Drug: Metoclopramide 20 mg [metoclopramide 5 mg/mL injection solution] Route: IV; Rate: jmk 80 mg/hr; Infused Over: 15 mins; Site: left antecubital; 13:04 Not Given (pt reports that he is driving): diphenhydrAMINE 50 mg IVP once cresencio 14:28 Drug: ketorolac 30 mg [ketorolac 30 mg/mL (1 mL) injection solution (1 mL)] Route: IVP; jo3 Site: left antecubital; 15:03 Follow up: Response: Pain is decreased alex Signatures: Dispatcher [employer] EDMS Eldon Wynn RN RN Beckie Russo, Reg Reg gb Micah Gregorio, Reg Reg lg Yessy Simon RN RN jo3 Cassius Dumas PA PA btw Nayeli Durbin RN RN ttb The chart was reviewed and I authenticate all verbal orders and agree with the evaluation and treatment provided.Attachments: 12:16 [facility] Payment Agreement lg 09/30 11:50 T-Sheet-- Draft Copy gb Chart Complete MTDD
== END 2016-09-29 15:05 | disposition home or self-care (01) ==
LOC: M ED 11:31
DX: K52.9 Noninfective gastroenteritis and colitis, unspecified (principal); Z72.0 Tobacco use; Z91.030 Bee allergy status
CPT/HCPCS: 36415; 74177; 80048; 80076; 82150; 83690; 85025; 96374; 96375; 99284; J1885; J2765; Q9967

== ENCOUNTER → 2017-02-26 | Outpatient (REF) | payer OTHER ==
[2017-02-26 11:57] LABS: BASO % 0.7 % (0.0-1.0); EOS # 0.2 K/mm3 (0.0-0.50); EOS % 5.2 % (0.0-3.0); LARGE UNSTAINED CELL # 0.2 K/mm3 (0.0-0.4); LARGE UNSTAINED CELL % 3.2 % (0.0-4.0); LYMPH # 1.8 K/mm3 (1.5-4.5); LYMPH % 33.8 % (24.0-44.0); MEAN CORPUSCULAR HEMOGLOBIN 32.5 pg (27.0-33.0); MEAN CORPUSCULAR HGB CONC 33.9 g/dl (32.0-36.5); MEAN CORPUSCULAR VOLUME 95.9 fl (80.0-96.0); MONO # 0.4 K/mm3 (0.0-0.8); NEUTROPHILS # 2.3 K/mm3 (1.8-7.7); NEUTROPHILS % 49.1 % (36.0-66.0); PLATELET COUNT, AUTOMATED 268 k/mm3 (150-450); WHITE BLOOD COUNT 4.8 K/mm3 (4.0-10.0)
[2017-02-26 13:48] LABS: ALBUMIN 3.7 GM/DL (3.2-5.2); ALBUMIN/GLOBULIN RATIO 1.23 (1.00-1.93); ALKALINE PHOSPHATASE 55 U/L (45-117); ALT/SGPT 25 U/L (12-78); ANION GAP 3 MEQ/L (8-16); AST/SGOT 11 U/L (15-37); BILIRUBIN,TOTAL 0.5 MG/DL (0.2-1.0); BLOOD UREA NITROGEN 15 MG/DL (7-18); CARBON DIOXIDE LEVEL 32 MEQ/L (21-32); CHLORIDE LEVEL 107 MEQ/L (98-107); CHOLESTEROL LEVEL 181 MG/DL (<200); GLOMERULAR FILTRATION RATE > 60.0 (>56); GLUCOSE, FASTING 94 MG/DL (70-105); POTASSIUM SERUM 4.3 MEQ/L (3.5-5.1); SODIUM LEVEL 142 MEQ/L (136-145); TOTAL PROTEIN 6.7 GM/DL (6.4-8.2); TRIGLYCERIDES LEVEL 68 MG/DL (<150)
== END ==
LOC: M SFHCPLAZ 09:31
PROVIDERS: ATTEND Nurse Practitioner Family
DX: F34.1 Dysthymic disorder (principal); Z13.220 Encounter for screening for lipoid disorders

== ENCOUNTER → 2019-07-07 | Outpatient (REF) | payer OTHER ==
[~2019-07-07] MED LIST changes: -/ACETCOD2T PO; +ACET1TAB15 PO
[2019-07-07 11:28] LABS: BASO # 0.1 10^3/uL (0.0-0.2); BASO % 0.7 % (0.0-1.0); EOS # 0.2 10^3/uL (0.0-0.5); EOS % 2.5 % (0.0-3.0); HEMATOCRIT 47.9 % (42.0-52.0); HEMOGLOBIN 15.6 g/dl (13.5-17.5); LYMPH # 1.8 10^3/uL (1.5-5.0); LYMPH % 24.6 % (24.0-44.0); MEAN CORPUSCULAR HEMOGLOBIN 31.9 pg (27.0-33.0); MEAN CORPUSCULAR HGB CONC 32.6 g/dl (32.0-36.5); MONO # 0.7 10^3/uL (0.0-0.8); MONO % 9.1 % (0.0-5.0); NEUTROPHILS # 4.6 10^3/uL (1.5-8.5); PLATELET COUNT, AUTOMATED 241 10^3/uL (150-450); RED BLOOD COUNT 4.89 10^6/uL (4.30-6.10); WHITE BLOOD COUNT 7.3 10^3/uL (4.0-10.0)
[2019-07-07 12:18] LABS: ALBUMIN 3.7 GM/DL (3.2-5.2); ALT/SGPT 21 U/L (12-78); BILIRUBIN,TOTAL 0.4 MG/DL (0.2-1.0); BLOOD UREA NITROGEN 18 MG/DL (7-18); CALCIUM LEVEL 8.9 MG/DL (8.8-10.2); CARBON DIOXIDE LEVEL 30 MEQ/L (21-32); CHLORIDE LEVEL 105 MEQ/L (98-107); CHOLESTEROL LEVEL 198 MG/DL (<200); CHOLESTEROL RISK RATIO 2.955 (<5); GLOMERULAR FILTRATION RATE > 60.0 (>49); GLUCOSE, FASTING 106 MG/DL (70-100); HDL CHOLESTEROL 67 MG/DL (>40); LDL CHOLESTEROL 115 MG/DL (<100); NON-HDL-C 131 MG/DL; POTASSIUM SERUM 4.3 MEQ/L (3.5-5.1); SODIUM LEVEL 142 MEQ/L (136-145); TOTAL PROTEIN 6.8 GM/DL (6.4-8.2); TRIGLYCERIDES LEVEL 79 MG/DL (<150)
[2019-07-09 00:06] LABS: Lyme Disease IgG/IgM Antibodie <0.91 ISR (0.00-0.90); Lyme Disease IgM Ab Quantitati <0.80 index (0.00-0.79)
== END ==
LOC: M SFHCPLAZ 09:56
DX: Z23 Encounter for immunization (principal); W57.XXXA Bitten or stung by nonvenomous insect and other nonvenomous arthropods, initial encounter

== ENCOUNTER → 2019-10-17 | Outpatient (CLI) | payer OTHER ==
[2019-10-17 12:12] LABS: ALBUMIN 4.1 GM/DL (3.2-5.2); BILIRUBIN,DIRECT 0.1 MG/DL (0.0-0.2); BILIRUBIN,TOTAL 0.4 MG/DL (0.2-1.0)
== END ==
LOC: M LAB 10:50
PROVIDERS: ATTEND Dermatology
DX: D49.2 Neoplasm of unspecified behavior of bone, soft tissue, and skin (principal); B35.1 Tinea unguium

== ENCOUNTER → 2019-12-11 | Outpatient (REF) | payer OTHER ==
[2019-12-11 14:19] LABS: CHOLESTEROL RISK RATIO 2.955 (<5)
[2019-12-11 14:32] LABS: HEMOGLOBIN A1c 5.8 %
== END ==
LOC: M SFHCPLAZ 11:52
DX: R73.01 Impaired fasting glucose (principal); Z78.9 Other specified health status

== ENCOUNTER → 2020-04-20 | Outpatient (CLI) | payer OTHER ==
[2020-04-20 15:59] LABS: ALBUMIN 3.8 GM/DL (3.2-5.2); BILIRUBIN,DIRECT 0.2 MG/DL (0.0-0.2); BILIRUBIN,TOTAL 0.6 MG/DL (0.2-1.0); CHOLESTEROL RISK RATIO 2.797 (<5); TOTAL PROTEIN 6.8 GM/DL (6.4-8.2)
== END ==
LOC: M PLALAB 12:31
DX: Z79.899 Other long term (current) drug therapy (principal)

== ENCOUNTER → 2020-06-01 | Outpatient (REF) | payer OTHER | LOC: M LAB REF 17:22 | PROVIDERS: ATTEND Dermatology | DX: D23.5 Other benign neoplasm of skin of trunk (principal) ==

== ENCOUNTER → 2020-10-14 | Outpatient (REF) | payer OTHER ==
[2020-10-14 19:54] LABS: BILIRUBIN,DIRECT 0.1 MG/DL (0.0-0.2); BILIRUBIN,TOTAL 0.4 MG/DL (0.2-1.0); TOTAL PROTEIN 6.8 GM/DL (6.4-8.2)
== END ==
LOC: M PLALAB 18:41 → M LAB REF 18:41
PROVIDERS: ATTEND Dermatology
DX: Z51.81 Encounter for therapeutic drug level monitoring (principal)

== ENCOUNTER → 2020-12-06 | Outpatient (REF) | payer OTHER | LOC: M SFHCPLAZ 15:37 | PROVIDERS: ATTEND Family Medicine | DX: R73.03 Prediabetes (principal) ==

== ENCOUNTER → 2020-12-20 | Outpatient (REF) | payer OTHER ==
[2020-12-20 18:02] LABS: BLOOD UREA NITROGEN 14 MG/DL (7-18); CALCIUM LEVEL 8.8 MG/DL (8.8-10.2); CARBON DIOXIDE LEVEL 26 MEQ/L (21-32); CHLORIDE LEVEL 109 MEQ/L (98-107); CHOLESTEROL LEVEL 168 MG/DL (<200); CREATININE FOR GFR 0.83 MG/DL (0.70-1.30); GLOMERULAR FILTRATION RATE > 60.0 (>49); GLUCOSE, FASTING 95 MG/DL (70-100); HDL CHOLESTEROL 75 MG/DL (>40); LDL CHOLESTEROL 83 MG/DL (<100); NON-HDL-C 93 MG/DL; POTASSIUM SERUM 3.9 MEQ/L (3.5-5.1); SODIUM LEVEL 143 MEQ/L (136-145); TRIGLYCERIDES LEVEL 52 MG/DL (<150)
[2020-12-20 19:33] LABS: HEMOGLOBIN A1c 5.5 %
== END ==
LOC: M SFHCPLAZ 14:27
PROVIDERS: ATTEND Family Medicine
DX: R73.03 Prediabetes (principal)

== ENCOUNTER → 2021-05-12 | Outpatient (REF) | payer OTHER | LOC: M LAB REF 18:48 | PROVIDERS: ATTEND Dermatology | DX: C44.622 Squamous cell carcinoma of skin of right upper limb, including shoulder (principal); D36.12 Benign neoplasm of peripheral nerves and autonomic nervous system, upper limb, including shoulder ==

== ENCOUNTER → 2021-07-11 | Outpatient (CLI) | payer OTHER ==
--- NOTE | 2021-07-11 14:13 | REP ---
INDICATION: LEFT KNEE AND HIP PAIN COMPARISON: None. TECHNIQUE: AP, lateral, bilateral oblique and sunrise views. FINDINGS: The osseous structures and joint spaces are intact and essentially age-appropriate. No significant overt arthritic changes are appreciated. There is a tiny spur along the superior margin of the patella identified on lateral radiograph. There is no evidence for acute or obvious healed injury. No effusion. No soft tissue calcifications or loose bodies are identified. IMPRESSION: Mild age-related changes. <Electronically signed by Carlo Dunn > 07/11/21 [id number]
--- NOTE | 2021-07-11 14:14 | REP ---
INDICATION: LEFT KNEE AND HIP PAIN COMPARISON: None. TECHNIQUE: AP and frog-lateral views of the left hip FINDINGS: Generalized age-related changes include subtle increased sclerosis to the acetabulum with minimal joint space narrowing. No further overt osteoarthritic or significant degenerative changes are appreciated. No evidence for acute or healed injury. Surrounding soft tissues are normal. IMPRESSION: Mild generalized age-related changes. <Electronically signed by Carlo Dunn > 07/11/21 [id number]
== END ==
LOC: M PLAIMG 12:47
PROVIDERS: ATTEND Student in an Organized Health Care Education/Training Program
DX: M25.562 Pain in left knee (principal); M25.552 Pain in left hip

== ENCOUNTER → 2021-09-02 | Outpatient (REF) | payer OTHER | LOC: M LAB REF 14:12 | PROVIDERS: ATTEND Dermatology | DX: L90.5 Scar conditions and fibrosis of skin (principal) ==

== ENCOUNTER → 2021-11-15 | Outpatient (REF) | payer OTHER | LOC: M SFHCWAGY 13:55 | PROVIDERS: ATTEND Nurse Practitioner Family | DX: L81.4 Other melanin hyperpigmentation (principal); I78.1 Nevus, non-neoplastic ==

== ENCOUNTER → 2022-02-27 | Outpatient (REF) | payer OTHER | LOC: M LAB REF 19:52 | PROVIDERS: ATTEND Physician Assistant | DX: N39.0 Urinary tract infection, site not specified (principal) ==

== ENCOUNTER 2022-03-06 09:11 | Outpatient (RCR) | payer OTHER | END 2022-03-19 | LOC: M PT 09:11 | PROVIDERS: ATTEND Student in an Organized Health Care Education/Training Program | DX: M25.562 Pain in left knee (principal) ==

== ENCOUNTER → 2022-03-07 | Outpatient (CLI) | payer OTHER | LOC: M RAD 10:51 | PROVIDERS: ATTEND Student in an Organized Health Care Education/Training Program | DX: F17.200 Nicotine dependence, unspecified, uncomplicated (principal) ==

== ENCOUNTER → 2022-04-03 | Outpatient (CLI) | payer OTHER | LOC: M PLAIMG 10:35 | PROVIDERS: ATTEND Urology | DX: Z12.5 Encounter for screening for malignant neoplasm of prostate (principal); Z87.442 Personal history of urinary calculi ==

== ENCOUNTER 2022-04-04 10:45 | Outpatient (RCR) | payer OTHER | END 2022-04-19 | LOC: M PT 10:45 | PROVIDERS: ATTEND Student in an Organized Health Care Education/Training Program | DX: M25.562 Pain in left knee (principal) ==

== ENCOUNTER → 2022-06-22 | Outpatient (CLI) | payer OTHER | LOC: M PLALAB 13:19 | PROVIDERS: ATTEND Student in an Organized Health Care Education/Training Program | DX: M25.512 Pain in left shoulder (principal) ==

== ENCOUNTER → 2023-03-08 | Outpatient (CLI) | payer MEDICARE, OTHER ==
[2023-03-08 17:38] LABS: ALBUMIN 3.9 G/DL (3.2-5.2); ALKALINE PHOSPHATASE 52 U/L (46-116); ALT/SGPT 18 U/L (7.0-40); AST/SGOT 11 U/L (<34); BILIRUBIN,TOTAL 0.6 MG/DL (0.3-1.2); BLOOD UREA NITROGEN 15 MG/DL (9-23); CARBON DIOXIDE LEVEL 29 MMOL/L (20-31); CHLORIDE LEVEL 107 MMOL/L (98-107); CHOLESTEROL LEVEL 181 MG/DL (<200); CHOLESTEROL RISK RATIO 2.56 (<5); CREATININE FOR GFR 0.77 MG/DL (0.70-1.30); GLOMERULAR FILTRATION RATE > 60.0 (>49); GLUCOSE, FASTING 90 MG/DL (74-106); HDL CHOLESTEROL 70.5 MG/DL (>40); LDL CHOLESTEROL 92.9 MG/DL (<100); NON-HDL-C 110.5 MG/DL; POTASSIUM SERUM 5.4 MMOL/L (3.5-5.1); SODIUM LEVEL 143 MMOL/L (136-145); TOTAL PROTEIN 6.6 G/DL (5.7-8.2); TRIGLYCERIDES LEVEL 88 MG/DL (<150)
[2023-03-08 17:50] LABS: HEMOGLOBIN A1c 5.6 % (4.0-6.0)
== END ==
LOC: M PLALAB 12:50
PROVIDERS: ATTEND Family Medicine
DX: S93.432A Sprain of tibiofibular ligament of left ankle, initial encounter (principal); I25.10 Atherosclerotic heart disease of native coronary artery without angina pectoris; Z13.1 Encounter for screening for diabetes mellitus; M79.89 Other specified soft tissue disorders; X58.XXXA Exposure to other specified factors, initial encounter; Y92.9 Unspecified place or not applicable; Y93.9 Activity, unspecified; Y99.9 Unspecified external cause status; Z79.899 Other long term (current) drug therapy

== ENCOUNTER → 2023-03-15 | Outpatient (CLI) | payer MEDICARE, OTHER | LOC: M PLAIMG 14:36 | PROVIDERS: ATTEND Family Medicine | DX: S93.432A Sprain of tibiofibular ligament of left ankle, initial encounter (principal); W18.30XA Fall on same level, unspecified, initial encounter; Y92.009 Unspecified place in unspecified non-institutional (private) residence as the place of occurrence of the external cause ==

== ENCOUNTER → 2023-03-30 | Outpatient (CLI) | payer MEDICARE, OTHER | LOC: M RAD 08:08 | PROVIDERS: ATTEND Family Medicine | DX: Z13.6 Encounter for screening for cardiovascular disorders (principal) ==

== ENCOUNTER → 2023-04-13 | Outpatient (CLI) | payer MEDICARE, OTHER | LOC: M PLALAB 13:56 | PROVIDERS: ATTEND Urology | DX: Z12.5 Encounter for screening for malignant neoplasm of prostate (principal) | CPT/HCPCS: 36415; G0103 ==

== ENCOUNTER → 2023-05-01 | Outpatient (CLI) | payer MEDICARE | LOC: M RAD 09:41 | PROVIDERS: ATTEND Family Medicine | DX: Z87.891 Personal history of nicotine dependence (principal) ==

== ENCOUNTER → 2024-02-27 | Outpatient (REF) | payer MEDICARE, OTHER ==
[2024-02-27 17:26] LABS: HEMATOCRIT 41.7 % (42.0-52.0); HEMOGLOBIN 14.2 g/dl (13.5-17.5); MEAN CORPUSCULAR HEMOGLOBIN 32.3 pg (27.0-33.0); MEAN CORPUSCULAR HGB CONC 34.1 g/dl (32.0-36.5); MEAN CORPUSCULAR VOLUME 94.8 fl (80.0-96.0); PLATELET COUNT, AUTOMATED 255 10^3/uL (150-450); WHITE BLOOD COUNT 6.7 10^3/uL (4.0-10.0)
[2024-02-27 18:02] LABS: ALBUMIN 3.9 G/DL (3.2-5.2); ALKALINE PHOSPHATASE 48 U/L (46-116); ALT/SGPT 17 U/L (7.0-40); AST/SGOT 10 U/L (<34); BILIRUBIN,TOTAL 0.9 MG/DL (0.3-1.2); BLOOD UREA NITROGEN 13 MG/DL (9-23); CALCIUM LEVEL 9.1 MG/DL (8.3-10.6); CARBON DIOXIDE LEVEL 26 MMOL/L (20-31); CHLORIDE LEVEL 107 MMOL/L (98-107); CHOLESTEROL LEVEL 180 MG/DL (<200); CREATININE FOR GFR 0.86 MG/DL (0.70-1.30); GLOMERULAR FILTRATION RATE > 60.0 (>49); GLUCOSE, FASTING 86 MG/DL (74-106); HDL CHOLESTEROL 57.9 MG/DL (>40); LDL CHOLESTEROL 109.7 MG/DL (<100); NON-HDL-C 122.1 MG/DL; POTASSIUM SERUM 3.8 MMOL/L (3.5-5.1); SODIUM LEVEL 139 MMOL/L (136-145); TOTAL PROTEIN 6.3 G/DL (5.7-8.2); TRIGLYCERIDES LEVEL 62 MG/DL (<150)
== END ==
LOC: M PLALAB 16:54
PROVIDERS: ATTEND Family Medicine
DX: F17.200 Nicotine dependence, unspecified, uncomplicated (principal); N20.0 Calculus of kidney; Z13.1 Encounter for screening for diabetes mellitus; E78.00 Pure hypercholesterolemia, unspecified

== ENCOUNTER → 2024-03-12 | Outpatient (CLI) | payer MEDICARE, OTHER ==
[2024-03-12 12:53] LABS: THYROID STIMULATING HORMONE 1.404 uIU/ML (0.55-4.78); TOTAL 25(OH) VITAMIN D 44.4 NG/ML (20.0-100.0)
[2024-03-12 12:55] LABS: VITAMIN B12 LEVEL 350 PG/ML (211-911)
[2024-03-12 13:02] LABS: FOLATE > 24.0 NG/ML (>5.4)
== END ==
LOC: M PLALAB 09:26
PROVIDERS: ATTEND Family Medicine
DX: R53.83 Other fatigue (principal)

== ENCOUNTER 2024-07-02 09:30 | Day surgery (SDC) | payer MEDICARE, MEDICAID ==
[~2024-07-02] VITALS: Ht 172.7 cm; Wt 80.9 kg
[~2024-07-02 09:30] MED LIST changes: +THERTAB52 PO
[2024-07-02] MEDS ORDERED: propofoL 200 MG/20 ML VIAL As Ordered ONE (10:33)
[2024-07-02] MEDS ORDERED: PHENYLephrine 500MCG 5ML (100MCG/ML) SYRINGE As Ordered ONE (10:40)
[2024-07-02 10:48] VITALS: TEMP 97.1
[2024-07-02 11:05] VITALS: BP 102/64; O2SAT 98
== END 2024-07-02 11:19 | disposition home or self-care (01) ==
LOC: M OPP 09:30
PROVIDERS: ATTEND Internal Medicine Gastroenterology
DX: Z12.11 Encounter for screening for malignant neoplasm of colon (principal); K57.30 Diverticulosis of large intestine without perforation or abscess without bleeding; K64.0 First degree hemorrhoids; J98.6 Disorders of diaphragm; F17.290 Nicotine dependence, other tobacco product, uncomplicated; Z85.828 Personal history of other malignant neoplasm of skin; Z91.030 Bee allergy status
CPT/HCPCS: G0121; J2371

== ENCOUNTER → 2024-11-25 | Outpatient (CLI) | payer MEDICARE | LOC: M RAD 06:24 | DX: Z87.891 Personal history of nicotine dependence (principal) ==

== ENCOUNTER → 2025-06-16 | Outpatient (CLI) | payer MEDICARE | LOC: M PLALAB 15:31 | PROVIDERS: ATTEND Urology | DX: Z12.5 Encounter for screening for malignant neoplasm of prostate (principal) ==

== ENCOUNTER → 2025-08-19 | Outpatient (CLI) | payer MEDICARE ==
[2025-08-19 17:06] LABS: ALT/SGPT 13 U/L (7.0-40); AST/SGOT 13 U/L (<34); CALCIUM LEVEL 8.9 MG/DL (8.3-10.6); CARBON DIOXIDE LEVEL 29 MMOL/L (20-31); CHLORIDE LEVEL 106 MMOL/L (98-107); CHOLESTEROL LEVEL 184 MG/DL (<200); CHOLESTEROL RISK RATIO 3.09 (<5); CREATININE FOR GFR 0.91 MG/DL (0.70-1.30); GLOMERULAR FILTRATION RATE > 90.0 (>49); LDL CHOLESTEROL 101.3 MG/DL (<100); NON-HDL-C 124.5 MG/DL; POTASSIUM SERUM 4.7 MMOL/L (3.5-5.1); SODIUM LEVEL 142 MMOL/L (136-145); TRIGLYCERIDES LEVEL 116 MG/DL (<150)
[2025-08-19 17:10] LABS: TOTAL 25(OH) VITAMIN D 39.7 NG/ML (20.0-100.0); VITAMIN B12 LEVEL 435 PG/ML (211-911)
== END ==
LOC: M PLALAB 14:39
PROVIDERS: ATTEND Family Medicine
DX: Z13.29 Encounter for screening for other suspected endocrine disorder (principal); Z13.21 Encounter for screening for nutritional disorder; Z13.1 Encounter for screening for diabetes mellitus; F33.1 Major depressive disorder, recurrent, moderate; I25.10 Atherosclerotic heart disease of native coronary artery without angina pectoris; Z79.899 Other long term (current) drug therapy